=== PATIENT | female | born 1980 | race Caucasian/White ===

== ENCOUNTER 2018-09-11 00:35 | Emergency (ER) | payer OTHER ==
[2018-09-11] MEDS ORDERED: NAPROXEN 500 MG TABLET ONE (00:58)
[2018-09-11] MEDS ORDERED: TRAMADOL HCL 50 MG TABLET ONE (00:58)
== END 2018-09-11 01:07 | disposition home or self-care (01) ==
LOC: EDH 00:35
DX: S39.012A Strain of muscle, fascia and tendon of lower back, initial encounter (principal); Z72.0 Tobacco use; X58.XXXA Exposure to other specified factors, initial encounter; Y93.89 Activity, other specified; Y92.89 Other specified places as the place of occurrence of the external cause; Y99.8 Other external cause status